=== PATIENT | female | born 1965 | race Caucasian/White ===

== ENCOUNTER 2017-10-07 20:16 | Emergency (ER) | payer OTHER ==
[~2017-10-07] VITALS: Ht 154.9 cm; Wt 68.7 kg
[2017-10-07 20:50] VITALS: Ht 154.9 cm; Wt 68.7 kg
[2017-10-07 22:18] VITALS: BP 129/78
== END 2017-10-07 22:18 | disposition home or self-care (01) ==
LOC: ED 20:16
DX: M79.602 Pain in left arm (principal); M79.601 Pain in right arm; R07.89 Other chest pain
CPT/HCPCS: J1885

== ENCOUNTER 2017-10-16 17:18 | Emergency (ER) | payer OTHER ==
[~2017-10-16] VITALS: Ht 162.6 cm; Wt 68.0 kg
[2017-10-16 17:34] VITALS: Ht 162.6 cm; Wt 68.0 kg
[2017-10-16 19:01] VITALS: BP 112/72
== END 2017-10-16 19:01 | disposition home or self-care (01) ==
LOC: ED 17:18
DX: M19.012 Primary osteoarthritis, left shoulder (principal); F17.210 Nicotine dependence, cigarettes, uncomplicated; Z71.2 Person consulting for explanation of examination or test findings
CPT/HCPCS: 99406; J1885

== ENCOUNTER 2018-05-22 15:26 | Emergency (ER) | payer OTHER ==
[~2018-05-22] VITALS: Ht 160 cm; Wt 65.3 kg
[2018-05-22 15:28] VITALS: Ht 160 cm; Wt 65.3 kg
[2018-05-22 19:11] LABS: BASOPHIL % 0.6 % (0-2); PLATELET COUNT 268 x10^3mcL (130-400); RED CELL DISTRIBUTION WIDTH 13.7 % (11.5-14.5)
[2018-05-22 19:18] LABS: CALCIUM 8.6 mg/dL (8.5-10.1); CARBON DIOXIDE 25.3 mmol/L (21-32); CHLORIDE SERUM 104 mmol/L (98-107); CREATININE SERUM 0.8 mg/dL (0.6-1.0); GFR1 > 60 mL/min; GLUCOSE SERUM 136 mg/dL (74-106); POTASSIUM SERUM 3.4 mmol/L (3.5-5.1); SODIUM SERUM 133 mmol/L (136-145)
[2018-05-22 19:23] LABS: ALBUMIN 3.5 g/dL (3.4-5.0); ALKALINE PHOSPHATASE 67 U/L (46-116); ALT/SGPT 31 U/L (14-59); AST/SGOT 19 U/L (15-37); BILIRUBIN TOTAL 0.18 mg/dL (0.20-1.00); LIPASE 97 IU/L (73-393); TOTAL PROTEIN, SERUM 7.3 g/dL (6.4-8.2)
[2018-05-22 20:27] VITALS: BP 107/66
== END 2018-05-22 20:27 | disposition home or self-care (01) ==
LOC: ED 15:26
PROVIDERS: Emergency Medicine
DX: R07.89 Other chest pain (principal); K29.70 Gastritis, unspecified, without bleeding; F17.210 Nicotine dependence, cigarettes, uncomplicated
CPT/HCPCS: 36415; J7613; J7644

== ENCOUNTER 2018-12-30 12:45 | Emergency (ER) | payer OTHER ==
[~2018-12-30] VITALS: Ht 154.9 cm; Wt 68.5 kg
[2018-12-30 13:06] VITALS: BP 105/75; Ht 154.9 cm; Wt 68.5 kg
== END 2018-12-30 14:25 | disposition home or self-care (01) ==
LOC: ED 12:45
DX: M25.511 Pain in right shoulder (principal); F17.210 Nicotine dependence, cigarettes, uncomplicated; M19.90 Unspecified osteoarthritis, unspecified site
CPT/HCPCS: 99406; J1885

== ENCOUNTER 2019-08-11 04:25 | Emergency (ER) | payer OTHER ==
[~2019-08-11] VITALS: Ht 160 cm; Wt 68.9 kg
[2019-08-11 04:30] VITALS: Ht 160 cm; Wt 68.9 kg
[2019-08-11 04:56] VITALS: BP 124/73
== END 2019-08-11 04:56 | disposition home or self-care (01) ==
LOC: ED 04:25
DX: M13.841 Other specified arthritis, right hand (principal); Z87.442 Personal history of urinary calculi
CPT/HCPCS: J1885